=== PATIENT | female | born 1940 | race Caucasian/White ===

== ENCOUNTER 2018-06-11 21:32 | Emergency (ER) | payer MEDICARE ==
[2018-06-11] MEDS ORDERED: Bacitracin/Neomycin/Polymyxin B Oint 0.9 GM U/D Packet TOP ONE (22:07)
--- NOTE | 2018-06-11 22:55 | EDM.PDOC ---
ED HPI GENERAL MEDICAL PROBLEM - General Chief Complaint: Laceration Stated Complaint: laceration, knee pain Time Seen by Provider: 06/11/18 22:01 Source of Information: Reports: Patient History Limitations: Reports: No Limitations - History of Present Illness INITIAL COMMENTS - FREE TEXT/NARRATIVE: Patient fell to ground while walking near the [facility] due to foot sliding on a rock. No LOC. Had sunglasses on--sunglasses cut into right eyebrow area. Bruising/abrasions on right hand. Bruising on left knee. Able to ambulate well. No numbness/tingling. No loss of function or deformity noted. No change in vision. No other complaints. Right Headache Pain Score (Numeric/FACES): 6 left knee Pain Score (Numeric/FACES): 8 - Related Data Allergies Allergy/AdvReac Type Severity Reaction Status Date / Time No Known Allergies Allergy Verified 06/11/18 21:39 Home Meds: Home Meds Butalbital/Aspirin/Caffeine [Fiorinal 50-325-40 MG] 1 each PO DAILY PRN [History] Metoprolol Succinate [Toprol XL 50mg] 100 mg PO BEDTIME 06/11/18 [History] Multivitamins [Tab-A-Yaneth] 1 each PO DAILY 06/11/18 [History] Omeprazole 20 mg PO DAILY 06/11/18 [History] Sertraline HCl 50 tab PO DAILY 06/11/18 [History] atorvaSTATin [Lipitor] 40 mg PO BEDTIME 06/11/18 [History] cycloSPORINE [Restasis] 1 drop EYEBOTH BID 06/11/18 [History] Past Medical History HEENT History: Reports: Cataract, Impaired Vision Cardiovascular History: Reports: High Cholesterol, Hypertension Respiratory History: Reports: None Gastrointestinal History: Reports: GERD, PUD Genitourinary History: Reports: None PRIMARY CARE NURSE History: Reports: Musculoskeletal History: Reports: Arthritis, Fibromyalgia Neurological History: Reports: Headaches, Chronic, Migraines Psychiatric History: Reports: None, Other (See Below) Other Psychiatric History: zoloft for fibromyalgia Endocrine/Metabolic History: Reports: None Hematologic History: Reports: None Immunologic History: Reports: None Oncologic (Cancer) History: Reports: Basal Cell Carcinoma Dermatologic History: Reports: Other (See Below) Other Dermatologic History: basal cell to face - Infectious Disease History Infectious Disease History: Reports: Chicken Pox, Measles, Mumps, Rubella - Past Surgical History Head Surgeries/Procedures: Reports: None HEENT Surgical History: Reports: Adenoidectomy, Cataract Surgery, Oral Surgery, Tonsillectomy Cardiovascular Surgical History: Reports: None Respiratory Surgical History: Reports: None GI Surgical History: Reports: EGD Female Surgical History: Reports: Hysterectomy Endocrine Surgical History: Reports: None Neurological Surgical History: Reports: None Musculoskeletal Surgical History: Reports: None Dermatological Surgical History: Reports: Other (See Below) Social & Family History - Tobacco Use Smoking Status *Q: Never Smoker - Caffeine Use Caffeine Use: Reports: Coffee, Soda - Recreational Drug Use Recreational Drug Use: No ED ROS GENERAL - Review of Systems Review Of Systems: See Below Constitutional: Reports: No Symptoms HEENT: Denies: Dental Pain, Ear Pain, Eye Pain, Nose Pain, Vertigo, Vision Change Respiratory: Reports: No Symptoms Cardiovascular: Reports: No Symptoms. Denies: Chest Pain GI/Abdominal: Reports: No Symptoms : Reports: No Symptoms Musculoskeletal: Reports: Neck Pain (chronic arthritis, no change in baseline pain at this time), Hand Pain (discomfort right hand), Joint Pain (left knee). Denies: Shoulder Pain, Arm Pain, Back Pain Skin: Reports: Other (scattered abrasions right palm, right side of face, left knee. Laceration near right eyebrow. ) Neurological: Reports: Gait Disturbance (sore left knee). Denies: Confusion, Dizziness, Headache, Numbness, Paresthesia, Syncope, Trouble Speaking, Change in Speech Psychiatric: Reports: No Symptoms Hematologic/Lymphatic: Reports: No Symptoms ED EXAM, SKIN/RASH Exam: See Below Exam Limited By: No Limitations General Appearance: Alert, WD/WN, No Apparent Distress Eye Exam: Bilateral Eye: EOMI, PERRL Ears: Normal External Exam, Normal Canal Nose: Normal Inspection. No: Nasal Deformity, Nasal Swelling, Nasal Drainage Throat/Mouth: Normal Inspection, Normal Lips, Normal Teeth, Normal Voice Head: Other (laceration right eyebrow area, several linear superficial lacerations noted over bridge of nose and right mid face. Orbits/bony areas of face appear intact and non-tender.) Neck: Normal Inspection, Supple, Non-Tender, Full Range of Motion Respiratory/Chest: No Respiratory Distress, Lungs Clear, Normal Breath Sounds, No Accessory Muscle Use, Chest Non-Tender Cardiovascular: Regular Rate, Rhythm, No Murmur GI/Abdominal: Normal Bowel Sounds, Soft, Non-Tender, No Distention (Female) Exam: Deferred Rectal (Female) Exam: Deferred Back Exam: Normal Inspection, CVA Tenderness (L). No: Muscle Spasm, Paraspinal Tenderness, Vertebral Tenderness Extremities: Normal Capillary Refill, Other (two lacerations noted right palm, several abrasions right palm. Small abrasion over left knee with surrounding early bruising. Able to bear weight. ABle to flex and extend knee but has some discomfort with movement. Knee joint appears stable. ) Neurological: Alert, Oriented, Normal Cognition, No Motor/Sensory Deficits Skin: Warm, Dry, Ecchymosis, Wound/Incision, Other (see above notes) ED SKIN PROCEDURES - Laceration/Wound Repair Right Forehead Lac/Wound length In cm: 4 Appearance: Subcutaneous, Linear, Clean Skin Prep: Providone-Iodine (Betadine) Exploration/Debridement/Repair: Wound Explored, In a Bloodless Field, Explored to Base, No Foreign Material Found Closed with: Wound Adhesive Drain Placement: No Sterile Dressing Applied: Nurse Tetanus Status Addressed: Yes Complications: No Right Upper Ventral Hand Lac/Wound length In cm: 2 Appearance: Subcutaneous, Irregular, Clean Distal NVT: Neuro & Vascular Intact, No Tendon Injury Anesthetic Type: Local Local Anesthesia - Lidocaine (Xylocaine): 1% Plain Local Anesthetic Volume: 2cc Skin Prep: Providone-Iodine (Betadine) Exploration/Debridement/Repair: Wound Explored, In a Bloodless Field, Explored to Base, No Foreign Material Found Closed with: Sutures Suture Size: 4-0 # of Sutures: 3 Suture Type: Nylon, Interrupted Sterile Dressing Applied: Nurse Tetanus Status Addressed: Yes Complications: No Right Lower Ventral Hand Lac/Wound length In cm: 1.5 Appearance: Subcutaneous, Irregular, Clean Distal NVT: Neuro & Vascular Intact, No Tendon Injury Anesthetic Type: Local Local Anesthesia - Lidocaine (Xylocaine): 1% Plain Local Anesthetic Volume: 2cc Skin Prep: Providone-Iodine (Betadine) Exploration/Debridement/Repair: Wound Explored, In a Bloodless Field, Explored to Base, No Foreign Material Found Closed with: Sutures Suture Size: 4-0 # of Sutures: 2 Suture Type: Interrupted Drain Placement: No Sterile Dressing Applied: Nurse Tetanus Status Addressed: Yes Complications: No Course - Vital Signs Last Recorded V/S: Last Vital Signs Temp 36.4 C 06/11/18 21:43 Pulse 74 06/11/18 21:43 Resp 18 06/11/18 21:43 BP 137/66 06/11/18 21:43 Pulse Ox 98 06/11/18 21:43 - Orders/Labs/Meds Meds: Medications Discontinued Medications Generic Name Dose Route Start Last Admin Trade Name Jun PRN Reason Stop Dose Admin Lidocaine HCl 5 ml 06/11/18 22:07 06/11/18 22:12 Xylocaine-Mpf 1% INJECT 06/11/18 22:08 5 ml ONETIME ONE Administration Neomycin/Polymyxin/Bacitracin 1 each 06/11/18 22:07 06/11/18 22:12 Triple Antibiotic Oint TOP 06/11/18 22:08 1 each ONETIME ONE Administration - Re-Assessments/Exams Free Text/Narrative Re-Assessment/Exam: 06/11/18 23:05 Wounds cleansed. Patient reported that she had pulled some gravel out of her hand wounds while at home. No further foreign material found during laceration repair. Wounds probed prior to closure. No xrays performed of knee or hand. Patient is able to ambulate and can move all 4 limbs well. No focal neuro changes noted/reported. No LOC. Not anticoagulated. CT of head not indicated at this time. Discussed the above with patient and she stated that she did not wish to have any xrays at this time and would prefer to go home and see how she feels/heals. Wound care discussed with patient. To follow up as needed if any concerns/signs of infection develop. No showers for 5 days given the tissue glue. Sutures can be removed next Thursday. Departure - Departure Time of Disposition: 23:09 Disposition: Home, Self-Care 01 Condition: Good Clinical Impression: Abrasions of multiple sites, Laceration of multiple sites Fall Qualifiers: Encounter type: initial encounter Qualified Code(s): W19.XXXA - Unspecified fall, initial encounter Contusion of right hand Qualifiers: Encounter type: initial encounter Qualified Code(s): S60.221A - Contusion of right hand, initial encounter Contusion of left knee Qualifiers: Encounter type: initial encounter Qualified Code(s): S80.02XA - Contusion of left knee, initial encounter - Discharge Information *PRESCRIPTION DRUG MONITORING PROGRAM REVIEWED*: Not Applicable *COPY OF PRESCRIPTION DRUG MONITORING REPORT IN PATIENT GLORY: Not Applicable Instructions: Stitches, Bob White, or Adhesive Wound Closure, [id number], Hand Contusion, [id number] Referrals: PCP,Unknown [Ordering Only Provider] - Additional Instructions: Take Tylenol and/or Tramadol for pain. Ice for swelling and pain left knee and right hand/other sore spots. Gentle activity this next week. No showering until next Thursday so glue does not dissolve too early. Have sutures removed next Thursday. You can have that done for free at our hospital clinic. Follow up if you have any problems--neuro changes/signs of infection, etc and get rechecked. Pay attention to the left knee. If you notice locking or catching sensation, recommend follow up and MRI.
[2018-06-11] MEDS ORDERED: Diphtheria,Pertussis(Acell),Tetanus Vaccine 0.5 ML SDV IM ONE (23:01)
[2018-06-11] MEDS ORDERED: Acetaminophen 325 MG Tab PO ONE (23:13)
== END 2018-06-11 23:25 | disposition home or self-care (01) ==
LOC: LL.ED 21:32
DX: S61.411A Laceration without foreign body of right hand, initial encounter (principal); S01.81XA Laceration without foreign body of other part of head, initial encounter; S01.21XA Laceration without foreign body of nose, initial encounter; S80.02XA Contusion of left knee, initial encounter; Z23 Encounter for immunization; I10 Essential (primary) hypertension; E78.00 Pure hypercholesterolemia, unspecified; K21.9 Gastro-esophageal reflux disease without esophagitis; Z79.899 Other long term (current) drug therapy; W19.XXXA Unspecified fall, initial encounter
CPT/HCPCS: 12001; 12013; 90471; 90715; 99283; A9270-GY; J2001